=== PATIENT | male | born 1935 | race Caucasian/White ===

== ENCOUNTER 2020-03-27 16:59 | Emergency (ER) | payer OTHER, MEDICARE, BC ==
[~2020-03-27] VITALS: Ht 180.3 cm; Wt 9.1 kg
[2020-03-27] MEDS ORDERED: LIDOcaine 2% 10ml TOPICAL JELLY (Urojet) MM ONE (19:10)
--- NOTE | 2020-03-27 20:18 | NUR ---
BLADDER IRRIGATED MANUALLY WITH 300ML STERILE WATER, 500ML RETURN OF STRAW COLOR URINE SMALL SPARCE BLOOD CLOTS VISUALIZED. BLADDER SCAN SHOWED 719ML STILL IN BLADDER FOLLOWING IRRIGATION. Addendum: 03/27/20 at 2019 by VANNESA MD AWARE OF I/O STATUS
[2020-03-27 20:58] LABS: BASOPHILS # (AUTO) 0.1 X10'3 (0-0.2); BASOPHILS % (AUTO) 0.9 % (0-1); EOSINOPHILS # (AUTO) 0.1 X10'3 (0-0.9); EOSINOPHILS % (AUTO) 1.5 % (0-6); HEMATOCRIT 45.8 % (42.0-52.0); HEMOGLOBIN 15.4 g/dl (14.0-17.9); LYMPHOCYTES # (AUTO) 1.7 X10'3 (1.1-4.8); LYMPHOCYTES % (AUTO) 17.8 % (21-51); MEAN CORPUSCULAR HEMOGLOBIN 30.7 PG (27.0-31.0); MEAN CORPUSCULAR HGB CONC 33.5 g/dL (33.0-36.5); MEAN CORPUSCULAR VOLUME 91.5 FL (78-98); MEAN PLATELET VOLUME 7.5 FL (7.4-10.4); MONOCYTES # (AUTO) 0.9 X10'3 (0-0.9); MONOCYTES % (AUTO) 8.9 % (2-12); NEUTROPHILS # (AUTO) 6.7 X10'3 (1.8-7.7); NEUTROPHILS % (AUTO) 70.9 % (42-75); PLATELET COUNT 213 X10'3 (140-440); RED BLOOD COUNT 5.01 X10'6 (4.70-6.10); RED CELL DISTRIBUTION WIDTH 14.1 % (11.5-14.5); WHITE BLOOD COUNT 9.5 X10'3 (4.5-11.0)
[2020-03-27 21:13] LABS: ALANINE AMINOTRANSFERASE 32 U/L (12-78); ALBUMIN 3.7 G/DL (3.4-5.0); ALBUMIN/GLOBULIN RATIO 1.1 (1.1-1.5); ALKALINE PHOSPHATASE 85 IU/L (46-116); ANION GAP 8 (8-16); ASPARTATE AMINO TRANSFERASE 20 U/L (10-37); BILIRUBIN,TOTAL 0.9 MG/DL (0.1-1.0); BLOOD UREA NITROGEN 17 MG/DL (7-18); BUN/CREATININE RATIO 17.3 (5.4-32.0); CALCIUM 9.5 MG/DL (8.5-10.1); CHLORIDE 106 MMOL/L (99-107); CREATININE 0.98 MG/DL (0.60-1.10); GLUCOSE 97 MG/DL (70-104); POTASSIUM 3.6 MMOL/L (3.5-5.1); SODIUM 139 MMOL/L (135-145); TOTAL CARBON DIOXIDE 24.6 MMOL/L (24-32); TOTAL PROTEIN 7.1 G/DL (6.4-8.2); eGFR 73 ML/MIN
[2020-03-27 21:34] LABS: CLARITY,URINE SLIGHTLY CLOUDY (Clear); COLOR,URINE YELLOW (Yellow); GLUCOSE, URINE NEGATIVE (Neg); KETONES,URINE NEGATIVE (Neg); LEUKOCYTE ESTERASE ,URINE NEGATIVE (Neg); NITRITES, URINE NEGATIVE (Neg); OCCULT BLOOD,URINE LARGE (Neg); PH,URINE 7.5 (4.8-8.0); PROTEIN,URINE TRACE mg/dl (Neg); UROBILINOGEN,URINE 0.2 E.U/dL (0.2-1.0)
[2020-03-27 21:35] LABS: UA COLLECTION TYPE FOLEY CATH
[2020-03-27 21:42] LABS: WBC,URINE NONE SEEN /HPF (0-4)
[2020-03-27 21:43] LABS: BACTERIA,URINE NONE SEEN /HPF (Neg); RBC,URINE 50-100 /HPF (0-2); SQUAMOUS EPITHELIAL CELL,UR FEW /LPF (FEW)
[2020-03-27 21:48] VITALS: BP 133/85
== END 2020-03-27 21:52 | disposition home or self-care (01) ==
LOC: ER 17:00
DX: R31.9 Hematuria, unspecified (principal); Z85.9 Personal history of malignant neoplasm, unspecified; Z60.2 Problems related to living alone; Z88.0 Allergy status to penicillin
CPT/HCPCS: 36415; 51700; 80053; 81001; 85025; 99283; 99284

== ENCOUNTER 2020-11-06 14:16 | Emergency (ER) | payer OTHER, MEDICARE ==
[~2020-11-06] VITALS: Ht 177.8 cm; Wt 189.3 kg
[2020-11-06] MEDS ORDERED: LIDOcaine 2% 10ml TOPICAL JELLY (Urojet) TP ONE (16:30)
--- NOTE | 2020-11-06 18:00 | NUR ---
PATIETN HERE TO HAVE AMARO CATHETER REPLACED. PATIENT HAS APPOINTMENT WITH DR CAMPA UROLOGIST ON THE OF THIS MONTH. PATIENT'S CATHETER FELL OUT LAST NOC AND HE STRIGHT CATHED HIMSELF TODAY.
[2020-11-06 18:52] VITALS: BP 141/79
== END 2020-11-06 18:30 | disposition home or self-care (01) ==
LOC: ER 14:18
DX: T83.021A Displacement of indwelling urethral catheter, initial encounter (principal); Z88.0 Allergy status to penicillin; Z85.46 Personal history of malignant neoplasm of prostate
CPT/HCPCS: 51702; 99284

== ENCOUNTER 2021-04-11 11:30 | Emergency (ER) | payer OTHER, MEDICARE ==
[~2021-04-11] VITALS: Ht 177.8 cm; Wt 86.0 kg
[2021-04-11 12:31] VITALS: BP 159/85
[2021-04-11 13:01] LABS: BASOPHILS # (AUTO) 0.1 X10'3 (0-0.2); BASOPHILS % (AUTO) 0.7 % (0-1); EOSINOPHILS % (AUTO) 0.1 % (0-6); HEMATOCRIT 52.1 % (42.0-52.0); HEMOGLOBIN 17.1 g/dl (14.0-17.9); LYMPHOCYTES # (AUTO) 1.2 X10'3 (1.1-4.8); LYMPHOCYTES % (AUTO) 6.1 % (21-51); MEAN CORPUSCULAR HEMOGLOBIN 30.4 PG (27.0-31.0); MEAN CORPUSCULAR HGB CONC 32.8 g/dL (33.0-36.5); MEAN CORPUSCULAR VOLUME 92.5 FL (78-98); MEAN PLATELET VOLUME 7.6 FL (7.4-10.4); MONOCYTES % (AUTO) 5.1 % (2-12); NEUTROPHILS # (AUTO) 16.8 X10'3 (1.8-7.7); PLATELET COUNT 275 X10'3 (140-440); RED BLOOD COUNT 5.64 X10'6 (4.70-6.10); RED CELL DISTRIBUTION WIDTH 14.9 % (11.5-14.5)
[2021-04-11 13:07] LABS: CLARITY,URINE CLEAR (Clear); COLOR,URINE YELLOW (Yellow); GLUCOSE, URINE NEGATIVE (Neg); KETONES,URINE TRACE mg/dl (Neg); LEUKOCYTE ESTERASE ,URINE TRACE (Neg); NITRITES, URINE POSITIVE (Neg); OCCULT BLOOD,URINE SMALL (Neg); PROTEIN,URINE 30 mg/dl (Neg); UROBILINOGEN,URINE 0.2 E.U/dL (0.2-1.0)
[2021-04-11 13:09] LABS: UA COLLECTION TYPE CLN CATCH MIDSTREAM
[2021-04-11 13:16] LABS: MUCUS STRANDS FEW /LPF (Neg); SQUAMOUS EPITHELIAL CELL,UR FEW /LPF (FEW)
[2021-04-11 13:17] LABS: BACTERIA,URINE 2+ /HPF (Neg)
[2021-04-11 13:27] LABS: ALANINE AMINOTRANSFERASE 40 U/L (12-78); ALBUMIN 4.5 G/DL (3.4-5.0); ALBUMIN/GLOBULIN RATIO 1.3 (1.1-1.5); ALKALINE PHOSPHATASE 105 IU/L (46-116); ANION GAP 10 (8-16); ASPARTATE AMINO TRANSFERASE 22 U/L (10-37); BILIRUBIN,TOTAL 0.9 MG/DL (0.1-1.0); BLOOD UREA NITROGEN 24 MG/DL (7-18); BUN/CREATININE RATIO 17.3 (5.4-32.0); CALCIUM 9.9 MG/DL (8.5-10.1); CHLORIDE 107 MMOL/L (99-107); CREATININE 1.39 MG/DL (0.60-1.10); GLUCOSE 164 MG/DL (70-104); LIPASE 91 U/L (73-393); POTASSIUM 3.7 MMOL/L (3.5-5.1); SODIUM 142 MMOL/L (135-145); TOTAL CARBON DIOXIDE 24.8 MMOL/L (24-32); eGFR 49 ML/MIN
[2021-04-11] MEDS ORDERED: CEPH250T PO (16:34)
[2021-04-11] MEDS ORDERED: CefTRIAXone 1000mg IM Kit (w/lidocaine diluent) IM ONE (16:35)
[2021-04-11] MEDS ORDERED: HYDROcodone/acetaminophen 5mg/325mg tablet PO ONE (17:05)
[2021-04-11] MEDS ORDERED: HYDR-3965 PO (17:06)
== END 2021-04-11 17:25 | disposition home or self-care (01) ==
LOC: ER 11:30
DX: N39.0 Urinary tract infection, site not specified (principal); R10.84 Generalized abdominal pain; R33.9 Retention of urine, unspecified; Z85.9 Personal history of malignant neoplasm, unspecified; Z60.2 Problems related to living alone; Z88.0 Allergy status to penicillin; Z79.2 Long term (current) use of antibiotics
CPT/HCPCS: 36415; 80053; 81001; 83690; 85025; 87088; 96372; 99283; J0696

== ENCOUNTER 2023-08-30 10:47 | Emergency (ER) | payer OTHER, MEDICARE ==
[~2023-08-30] VITALS: Ht 177.8 cm; Wt 82.0 kg
[2023-08-30] MEDS ORDERED: LIDOcaine 2% 10ml TOPICAL JELLY (Urojet) MM ONE (11:45)
[2023-08-30] MEDS ORDERED: LidoCAINE 2% Topical Jelly 11mL syringe MM ONE (11:50)
[2023-08-30 13:17] LABS: CLARITY,URINE Turbid (Clear); COLOR,URINE RED (Yellow); UA COLLECTION TYPE FOLEY CATH
[2023-08-30 13:20] LABS: BASOPHILS # (AUTO) 0.1 X10'3 (0-0.2); BASOPHILS % (AUTO) 1.2 % (0-1); EOSINOPHILS # (AUTO) 0.2 X10'3 (0-0.9); EOSINOPHILS % (AUTO) 2.1 % (0-6); HEMATOCRIT 30.9 % (42.0-52.0); HEMOGLOBIN 10.2 g/dl (14.0-17.9); LYMPHOCYTES # (AUTO) 0.9 X10'3 (1.1-4.8); LYMPHOCYTES % (AUTO) 10.3 % (21-51); MEAN CORPUSCULAR HEMOGLOBIN 29.1 PG (27.0-31.0); MEAN CORPUSCULAR VOLUME 88.4 FL (78-98); MEAN PLATELET VOLUME 7.5 FL (7.4-10.4); MONOCYTES # (AUTO) 0.9 X10'3 (0-0.9); MONOCYTES % (AUTO) 9.5 % (2-12); NEUTROPHILS % (AUTO) 76.9 % (42-75); PLATELET COUNT 310 X10'3 (140-440); RED CELL DISTRIBUTION WIDTH 16.6 % (11.5-14.5); WHITE BLOOD COUNT 9.1 X10'3 (4.5-11.0)
[2023-08-30 13:23] VITALS: BP 124/64; PULSE 71; RESP 18; O2SAT 99
[2023-08-30 13:24] LABS: BACTERIA,URINE 1+ /HPF (Neg); RBC,URINE TNTC /HPF (0-2)
[2023-08-30 13:25] LABS: ALANINE AMINOTRANSFERASE 16 U/L (12-78); ALBUMIN 2.9 G/DL (3.4-5.0); ALBUMIN/GLOBULIN RATIO 0.8 (1.1-1.5); ALKALINE PHOSPHATASE 107 IU/L (46-116); ANION GAP 12 (8-16); ASPARTATE AMINO TRANSFERASE 26 U/L (10-37); BILIRUBIN,TOTAL 0.5 MG/DL (0.1-1.0); BLOOD UREA NITROGEN 28 MG/DL (7-18); BUN/CREATININE RATIO 15.6 (10.0-20.0); CALCIUM 9.7 MG/DL (8.5-10.1); CHLORIDE 106 MMOL/L (99-107); CREATININE 1.79 MG/DL (0.60-1.10); GLUCOSE 94 MG/DL (70-104); POTASSIUM 3.6 MMOL/L (3.5-5.1); SODIUM 141 MMOL/L (135-145); TOTAL CARBON DIOXIDE 23.4 MMOL/L (24-32); TOTAL PROTEIN 6.6 G/DL (6.4-8.2); eCRCL 31 ML/MIN; eGFR 36 ML/MIN
[2023-08-30 13:26] LABS: SQUAMOUS EPITHELIAL CELL,UR NONE SEEN /LPF (FEW)
[2023-08-30] MEDS ORDERED: SULF1TAB49 PO (14:00)
== END 2023-08-30 20:48 | disposition home or self-care (01) ==
LOC: ER 10:48
DX: R33.9 Retention of urine, unspecified (principal); N21.0 Calculus in bladder; R31.0 Gross hematuria; I10 Essential (primary) hypertension; Z88.0 Allergy status to penicillin
CPT/HCPCS: 36415; 51702; 80053; 81001; 85025; 87077; 87088; 87186; 99284; A4314; A4340

== ENCOUNTER 2023-09-01 06:21 | Emergency (ER) | payer OTHER, MEDICARE ==
[~2023-09-01] VITALS: Ht 177.8 cm; Wt 82.5 kg
[~2023-09-01 06:21] MED LIST: SULF1TAB49 PO
[2023-09-01 06:27] VITALS: TEMP 97
[2023-09-01] MEDS ORDERED: LidoCAINE 2% Topical Jelly 11mL syringe TOP ONE (09:10)
[2023-09-01 10:39] VITALS: BP 123/90; PULSE 80; RESP 16; O2SAT 93
== END 2023-09-01 10:42 | disposition home or self-care (01) ==
LOC: ER 06:21
DX: R33.9 Retention of urine, unspecified (principal); R31.9 Hematuria, unspecified; I10 Essential (primary) hypertension; Z86.718 Personal history of other venous thrombosis and embolism; Z85.9 Personal history of malignant neoplasm, unspecified; Z88.0 Allergy status to penicillin; Z79.899 Other long term (current) drug therapy
CPT/HCPCS: 51702; 99284; A6223; A4314; A4340; A4358; A6446